=== PATIENT | female | born 1930 | race Caucasian/White ===

== ENCOUNTER 2018-09-29 16:01 | Observation (INO) ==
[2018-09-29] MEDS ORDERED: MORPHINE 4 MG/1 ML VIAL IV PRN (18:12)
[2018-09-29] MEDS ORDERED: ONDANSETRON 4 MG/2 ML VIAL IV PRN (18:12)
[2018-09-29] MEDS ORDERED: SODIUM CHLORIDE 0.9% 1,000 ML IV SCH (18:30)
[2018-09-29 18:46] LABS: Basophils # 0.1 10*3/uL (0.0-0.2); Basophils % 0.8 % (0.0-0.8); Eosinophils # 0.2 10*3/uL (0.0-0.87); Eosinophils % 3.5 % (0.00-10.9); Hematocrit 36.2 VOL% (35.7-47.0); Immature Granulocytes % 0.3 %; Immature Granulocytes Absolute 0.02 #; Lymphocytes # 1.8 10*3/uL (1.4-4.0); Lymphocytes % 29.9 % (21.3-54.2); Mean Corpuscular HGB Conc 33.1 GM/DL (32-36); Mean Corpuscular Hemoglobin 30 PG (27-34); Mean Corpuscular Volume 89.4 FL (87-102); Mean Platelet Volume 9.9 FL (9.6-12.0); Monocytes # 0.6 10*3/uL (0.11-0.8); Monocytes % 10.5 % (1.7-12.7); Neutrophils # 3.3 10*3/uL (1.4-7.4); Platelet Count 186 T/CUMM (130-400); Red Blood Count 4.05 MC/CUMM (3.8-5.5); Red Cell Distribution Width 12.6 % (9.3-17.3)
[2018-09-29 19:14] LABS: Albumin 3.2 G/DL (3.4-5.0); Bilirubin,Total 0.7 MG/DL (0.2-1.0); Calcium 9.2 MG/DL (8.5-10.1); Osmolality,Calculated 280.4 MOS/KG (273-304); Risk Ratio 3.88; Thyroid Stimulating Hormone 3.45 uIU/ml (0.358-3.74); Total Protein 6.4 G/DL (6.4-8.3); VLDL CHOLESTEROL 15.8 MG/DL
[2018-09-30] MEDS ORDERED: MAGNESIUM SULF RIDER 2 GM in PREMIX 1 EACH IV PRN (00:36)
[2018-09-30] MEDS: ACETAMINOPHEN 325 MG TABLET PO PRN ×2 (00:42→23:20)
[2018-09-30] MEDS: POTASSIUM CHLORIDE 20 MEQ TABLET PO PRN ×2 (06:23→08:35)
[2018-09-30] MEDS: LEVOTHYROXINE 75 MCG TABLET PO SCH (06:23)
[2018-09-30] MEDS ORDERED: MELOXICAM 7.5 MG TABLET PO SCH (08:00)
[2018-09-30] MEDS: OXYBUTYNIN XL 15 MG TABLET PO SCH (08:35)
[2018-09-30] MEDS: SERTRALINE 25 MG TABLET PO SCH (08:35)
[2018-09-30] MEDS ORDERED: POTASSIUM CHLORIDE 20 MEQ TABLET PO SCH (09:00)
[2018-09-30] MEDS ORDERED: amLODIPine 2.5 MG TABLET PO SCH (09:00)
[2018-09-30 09:14] LABS: Calcium 8.6 MG/DL (8.5-10.1); Osmolality,Calculated 279.4 MOS/KG (273-304); Potassium 3.4 MMOL/L (3.5-5.1)
[2018-09-30] MEDS ORDERED: POTASSIUM CHLORIDE 20 MEQ TABLET PO ONE (11:00)
[2018-09-30] MEDS: PANTOPRAZOLE 40 MG TABLET PO SCH (12:21)
[2018-09-30] MEDS: amLODIPine 2.5 MG TABLET PO SCH (12:21)
[2018-09-30] MEDS ORDERED: ASPIRIN EC 81 MG TABLET PO SCH (12:30)
[2018-09-30] MEDS: LOSARTAN 50 MG TABLET PO SCH (14:55)
[2018-09-30 15:42] LABS: Apearance,Urine CLEAR (Clear); Bilirubin,Urine Negative (Negative); Blood, Urine Negative (Negative); Glucose,Urine (UA) Negative (Negative); Ketones,Urine Negative (Negative); Mucus,Urine Occasional /LPF (Occasional); Nitrite,Urine Negative (Negative); Protein,Urine Negative; RBC,Urine <1 /HPF (0-4); Squamous Epithelial Cell,Urine Occasional /HPF (0-10); Urine Color Straw (Yellow); Urine Specific Gravity 1.004 (1.001-1.035); Urine Urobilinogen < 2.0 EU/DL (0.2-1.0); WBC,Urine 1 /HPF (0-6)
[2018-09-30] MEDS ORDERED: ASPIRIN CHEW 81 MG TABLET PO ONE (17:46)
[2018-09-30] MEDS ORDERED: ENOXAPARIN 40 MG/0.4 ML SYRINGE SUBCUT ONE (17:48)
[2018-09-30] MEDS ORDERED: ROSUVASTATIN 10 MG TABLET PO SCH (21:00)
[2018-10-01 05:10] LABS: Basophils # 0.1 10*3/uL (0.0-0.2); Basophils % 0.7 % (0.0-0.8); Eosinophils # 0.5 10*3/uL (0.0-0.87); Eosinophils % 5.7 % (0.00-10.9); Hematocrit 38.6 VOL% (35.7-47.0); Hemoglobin 12.7 GM/DL (12.0-16.0); Immature Granulocytes % 0.4 %; Immature Granulocytes Absolute 0.03 #; Lymphocytes # 2.6 10*3/uL (1.4-4.0); Lymphocytes % 30.8 % (21.3-54.2); Mean Corpuscular HGB Conc 32.9 GM/DL (32-36); Mean Corpuscular Hemoglobin 30 PG (27-34); Mean Corpuscular Volume 91.3 FL (87-102); Mean Platelet Volume 10.1 FL (9.6-12.0); Monocytes # 0.9 10*3/uL (0.11-0.8); Monocytes % 10.5 % (1.7-12.7); Neutrophils # 4.3 10*3/uL (1.4-7.4); Neutrophils % 51.9 % (38.7-73.9); Platelet Count 202 T/CUMM (130-400); Red Blood Count 4.23 MC/CUMM (3.8-5.5); Red Cell Distribution Width 13.2 % (9.3-17.3); White Blood Count 8.3 T/CUMM (4-12)
[2018-10-01 05:26] LABS: Calcium 8.3 MG/DL (8.5-10.1); Osmolality,Calculated 276.7 MOS/KG (273-304); Potassium 3.9 MMOL/L (3.5-5.1)
[2018-10-01] MEDS: LEVOTHYROXINE 75 MCG TABLET PO SCH (06:14)
[2018-10-01 07:45] VITALS: BP 175/81
[2018-10-01] MEDS: LOSARTAN 50 MG TABLET PO SCH (08:31)
[2018-10-01] MEDS: SERTRALINE 25 MG TABLET PO SCH (08:31)
[2018-10-01] MEDS: amLODIPine 2.5 MG TABLET PO SCH (08:32)
[2018-10-01] MEDS: OXYBUTYNIN XL 15 MG TABLET PO SCH (08:32)
[2018-10-01] MEDS: PANTOPRAZOLE 40 MG TABLET PO SCH (08:32)
[2018-10-01] MEDS ORDERED: ASPIRIN CHEW 81 MG TABLET PO SCH (09:00)
[2018-10-01] MEDS ORDERED: hydroCHLOROthiazide 25 MG TABLET PO SCH (09:00)
== END 2018-10-01 11:10 | disposition home health service (06) ==
LOC: N.2E → SUATTDRO 16:48
PROVIDERS: ADMIT Internal Medicine; ATTEND Internal Medicine